=== PATIENT | female | born 1950 | race Caucasian/White ===

== ENCOUNTER 2021-03-06 08:49 | Inpatient (IN) ==
[2021-03-06] MEDS ORDERED: DEXTROSE 50% 25 GM/50 ML VIAL IV PRN (09:00)
[2021-03-06] MEDS ORDERED: GLUCAGON 1 MG VIAL IM PRN (09:00)
[2021-03-06] MEDS ORDERED: CHLORHEXIDINE 0.12% ORAL RINSE 60 ML BOTTLE SWISH/SPIT SCH (09:00)
[2021-03-06] MEDS ORDERED: CHLORHEXIDINE 4% SOLN 118 ML BOTTLE TOP SCH (09:00)
[2021-03-06] MEDS ORDERED: INFLUENZA VIRUS VACCINE 0.5 ML SYRINGE IM ONE (10:39)
[2021-03-06] MEDS: INSULIN REGULAR 100 UNIT/ML SUBCUT SCH ×4 (10:55→21:02)
[2021-03-06] MEDS: CHLORHEXIDINE 0.12% ORAL RINSE 60 ML BOTTLE SWISH/SPIT SCH ×2 (11:18→21:04)
[2021-03-06 11:19] LABS: Basophils % 0.7 % (0.0-0.8); Eosinophils # 0.2 10*3/uL (0.0-0.87); Eosinophils % 4.2 % (0.00-10.9); Hematocrit 22.8 VOL% (35.7-47.0); Hemoglobin 7.3 GM/DL (12.0-16.0); Immature Granulocytes % 0.9 %; Immature Granulocytes Absolute 0.04 #; Lymphocytes # 0.7 10*3/uL (1.4-4.0); Lymphocytes % 15.8 % (21.3-54.2); Mean Corpuscular Volume 87.7 FL (87-102); Mean Platelet Volume 10.9 FL (9.6-12.0); Monocytes % 7.8 % (1.7-12.7); Neutrophils % 70.6 % (38.7-73.9); Platelet Count 172 T/CUMM (130-400); Red Cell Distribution Width 13.3 % (9.3-17.3); White Blood Count 4.5 T/CUMM (4-12)
[2021-03-06 11:39] LABS: Albumin 2.5 G/DL (3.4-5.0); Bilirubin,Total 0.8 MG/DL (0.20-1.00); Calcium 8.5 MG/DL (8.5-10.1); Osmolality,Calculated 280.2 MOS/KG (273-304); Potassium 3.4 MMOL/L (3.5-5.1); Total Protein 6.3 G/DL (6.4-8.2)
[2021-03-06] MEDS ORDERED: SODIUM CHLORIDE 0.9% 1,000 ML IV PRN ×2 (13:31→23:00)
[2021-03-06] MEDS: CHLORHEXIDINE 4% SOLN 118 ML BOTTLE TOP SCH ×2 (14:20→21:04)
[2021-03-06 15:19] LABS: ABG Base Excess 6.6 MMOL/L (-2.5-2.5); ABG HCO3 30.5 MMOL/L (20-26); ABG Oxygen Saturation 97.7 % (95-100); ABG PCO2 40.5 MM HG (35-48); ABG PH 7.486 (7.35-7.45); ABG PO2 91.3 MM HG (80-95); ABG TCO2 28.7 MMOL/L (23-27)
[2021-03-06] MEDS ORDERED: HEPARIN 10,000 UNIT/10 ML VIAL IV PRN (15:56)
[2021-03-06] MEDS: ALBUTEROL 0.4 MG/ML 30 ML/BOTTLE PO SCH ×2 (16:03→21:03)
[2021-03-06 16:41] LABS: Hepatitis B Core IgM Quant 0.06 Index; Hepatitis B Surface Ag Quant < 0.10 Index; Hepatitis B Surface Ag Result Non-Reactive (NonReactive); Hepatitis C Virus Ab Quant 0.04 Index; Hepatitis C Virus Ab Result Non-Reactive (NonReactive)
[2021-03-06] MEDS ORDERED: CLORAZEPATE 3.75 MG TABLET PO PRN (20:43)
[2021-03-06] MEDS: hydrALAZINE 25 MG TABLET PO SCH (21:01)
[2021-03-06] MEDS: glyBURIDE 5 MG TABLET PO SCH (21:01)
[2021-03-06] MEDS: carvediloL 6.25 MG TABLET PO SCH ×2 (21:17→23:11)
[2021-03-07] MEDS ORDERED: VANCOMYCIN 1,000 MG VIAL ONE (04:57)
[2021-03-07] MEDS ORDERED: PAPAVERINE 60 MG/2 ML VIAL ONE (04:57)
[2021-03-07] MEDS ORDERED: VANCOMYCIN 500 MG VIAL ONE (04:57)
[2021-03-07] MEDS ORDERED: CEFUROXIME INJ 1,500 MG in SODIUM CHLORIDE 0.9% 100 ML IV ONE (05:00)
[2021-03-07] MEDS ORDERED: PANTOPRAZOLE 40 MG TABLET PO ONE (06:00)
[2021-03-07] MEDS ORDERED: DIAZEPAM 5 MG TABLET PO ONE (06:00)
[2021-03-07] MEDS ORDERED: LIDOCAINE 2% 5 ML VIAL ONE ×2 (06:02→10:22)
[2021-03-07] MEDS ORDERED: ETOMIDATE 40 MG/20 ML VIAL IV ONE (06:02)
[2021-03-07] MEDS ORDERED: VECURONIUM 10 MG VIAL IV ONE (06:02)
[2021-03-07] MEDS ORDERED: CALCIUM CHLORIDE 1,000 MG/10 ML VIAL IV ONE (06:02)
[2021-03-07] MEDS ORDERED: MIDAZOLAM 10 MG/2 ML VIAL ONE (06:03)
[2021-03-07] MEDS ORDERED: SUFentanil 250 MCG/5 ML AMP ONE (06:03)
[2021-03-07] MEDS ORDERED: LACTATED RINGERS 1,000 ML IV ONE (06:05)
[2021-03-07] MEDS ORDERED: SODIUM CHLORIDE 0.9% 1,000 ML IV ONE ×2 (06:05→20:35)
[2021-03-07] MEDS ORDERED: AMINOCAPROIC ACID 5,000 MG/20 ML VIAL ONE ×2 (06:05→06:28)
[2021-03-07] MEDS ORDERED: SODIUM CHLORIDE 0.9% 250 ML IV ONE (06:05)
[2021-03-07] MEDS ORDERED: MINERAL OIL/PETROLATUM OPH OINT 3.5 GM TUBE ONE (06:19)
[2021-03-07 07:14] LABS: Hematocrit 25.7 VOL% (35.7-47.0); Hemoglobin 8.2 GM/DL (12.0-16.0)
[2021-03-07 07:19] LABS: ABG HCO3 27.1 MMOL/L (20-26); ABG PH 7.467 (7.35-7.45); ABG TCO2 24.8 MMOL/L (23-27); Glucose Heart Surgery 147 MG/DL (74-106); Hematocrit Heart Surgery 25.7 PERCENT (37-47); Hemoglobin Heart Surgery 8.3 G/DL (12.0-16.0); Ionized Calcium Arterial 1.09 MMOL/L (1.21-1.46); PH Patient Temp Arterial 7.467; Patient Temperature 37 CELCIUS; Potassium Heart/CVR 3.5 MMOL/L (3.5-5.1); Sodium Heart/CVR 137 MMOL/L (135-145)
[2021-03-07] MEDS ORDERED: NITROPRUSSIDE 50 MG/2 ML VIAL ONE (07:39)
[2021-03-07] MEDS ORDERED: SODIUM BICARBONATE 50 MEQ/50 ML VIAL IV ONE ×2 (07:39→10:24)
[2021-03-07] MEDS ORDERED: POTASSIUM CHLORIDE RIDER 20 MEQ/100 ML PREMIX IV ONE (07:39)
[2021-03-07] MEDS ORDERED: CALCIUM CHLORIDE 1,000 MG/10 ML SYRINGE IV ONE (07:40)
[2021-03-07] MEDS ORDERED: PHENYLEPHRINE DRIP 40 MG/250 ML PREMIX IV ONE (07:40)
[2021-03-07] MEDS ORDERED: ALBUMIN 5% 12.5 GM/250 ML VIAL IV ONE ×2 (07:41→07:46)
[2021-03-07] MEDS ORDERED: LIDOCAINE 100 MG/5 ML SYRINGE ONE (07:41)
[2021-03-07] MEDS ORDERED: ATROPINE 1 MG/10 ML SYRINGE ONE (07:41)
[2021-03-07] MEDS ORDERED: EPINEPHrine 1 MG/10 ML SYRINGE ONE (07:42)
[2021-03-07 07:52] LABS: Bacteria,Urine Occasional /HPF (Few); Bilirubin,Urine Negative (Negative); Blood, Urine Negative (Negative); Glucose,Urine (UA) 50 mg/dL (Negative); Hyaline Casts,Urine 3 /LPF (0-3); Ketones,Urine Negative (Negative); Nitrite,Urine Negative (Negative); Protein,Urine >=500 MG/DL; RBC,Urine 1 /HPF (0-4); Squamous Epithelial Cell,Urine Occasional /HPF (0-10); Urine Appearance CLEAR (Clear); Urine Color Yellow (Yellow); Urine Specific Gravity 1.014 (1.001-1.035); Urine Urobilinogen < 2.0 EU/DL (0.2-1.0)
[2021-03-07] MEDS ORDERED: HEPARIN/NACL 0.9% 2 UNITS/ML 1,000 UNIT/500 ML BAG IV ONE (08:54)
[2021-03-07] MEDS ORDERED: SEVOFLURANE 1 UNIT/15 MINUTE INH ONE (08:54)
[2021-03-07 09:01] LABS: Glucose Heart Surgery 259 MG/DL (74-106); PCO2 Patient Temp Venous 28.2 MM HG; PH Patient Temp Venous 7.567; PO2 Patient Temp Venous 32.4 MM HG; Patient Temperature 34 CELCIUS; Potassium Heart/CVR 3.8 MMOL/L (3.5-5.1); Sodium Heart/CVR 126 MMOL/L (135-145); VBG Base Excess 2.5 MEQ/L (0-4); VBG HCO3 25.8 MEQ/L (24-28); VBG Oxygen Saturation 81.2 %; VBG PCO2 32.2 MMHG (41-51); VBG PH 7.521; VBG PO2 40.1 MMHG (17-40); VBG Total CO2 26.8 MMOL/L
[2021-03-07 09:02] LABS: Hemoglobin Heart Surgery < 5.0 G/DL (12.0-16.0)
[2021-03-07] MEDS ORDERED: PHENYLEPHRINE DRIP 20 MG/250 ML PREMIX IV ONE (09:13)
[2021-03-07 09:32] LABS: Hematocrit Heart Surgery 23.5 PERCENT (37-47); Hemoglobin Heart Surgery 7.5 G/DL (12.0-16.0); PCO2 Patient Temp Venous 29.7 MM HG; PH Patient Temp Venous 7.51; PO2 Patient Temp Venous 32.7 MM HG; Potassium Heart/CVR 4.8 MMOL/L (3.5-5.1); VBG Base Excess 1.1 MEQ/L (0-4); VBG HCO3 25.2 MEQ/L (24-28); VBG Oxygen Saturation 78.1 %; VBG PCO2 32.7 MMHG (41-51); VBG PH 7.48; VBG PO2 37.7 MMHG (17-40); VBG Total CO2 22.9 MMOL/L
[2021-03-07 10:21] LABS: ABG HCO3 23.6 MMOL/L (20-26); ABG PCO2 31.2 MM HG (35-48); ABG PH 7.461 (7.35-7.45); ABG TCO2 20.6 MMOL/L (23-27); Glucose Heart Surgery 258 MG/DL (74-106); Hematocrit Heart Surgery 25.9 PERCENT (37-47); Hemoglobin Heart Surgery 8.3 G/DL (12.0-16.0); Ionized Calcium Arterial 1.25 MMOL/L (1.21-1.46); PCO2 Patient Temp Arterial 31.2 MMHG; PH Patient Temp Arterial 7.461; Patient Temperature 37 CELCIUS; Sodium Heart/CVR 132 MMOL/L (135-145)
[2021-03-07] MEDS ORDERED: ALBUMIN 25% 25 GM/100 ML VIAL IV ONE (10:22)
[2021-03-07] MEDS ORDERED: HEPARIN 10,000 UNIT/10 ML VIAL ONE (10:23)
[2021-03-07] MEDS ORDERED: MANNITOL 12.5 GM/50 ML VIAL IV ONE (10:23)
[2021-03-07] MEDS ORDERED: methylPREDNISolone SOD SUC 1,000 MG/8 ML VIAL ONE (10:23)
[2021-03-07] MEDS ORDERED: PROTAMINE SULFATE 250 MG/25 ML VIAL IV ONE (10:23)
[2021-03-07] MEDS ORDERED: MAGNESIUM SULFATE 5 GM/10 ML VIAL IV ONE (10:23)
[2021-03-07] MEDS ORDERED: DEXTROSE 5% KCL 20 MEQ 40 MEQ/2,000 ML BAG IV ONE (10:23)
[2021-03-07] MEDS ORDERED: FUROSEMIDE 20 MG/2 ML VIAL ONE (10:24)
[2021-03-07] MEDS ORDERED: INSULIN REGULAR DRIP 100 ML IV SCH (10:43)
[2021-03-07] MEDS ORDERED: ALBUMIN 5% 12.5 GM/250 ML VIAL IV PRN (10:43)
[2021-03-07] MEDS ORDERED: INSULIN REGULAR 100 UNIT/ML IV ONE (10:43)
[2021-03-07] MEDS ORDERED: ONDANSETRON 4 MG/2 ML VIAL IV PRN (10:43)
[2021-03-07] MEDS ORDERED: POTASSIUM CHLORIDE RIDER 20 MEQ/100 ML PREMIX IV PRN (10:43)
[2021-03-07] MEDS ORDERED: INSULIN REGULAR 100 UNIT/ML IV PRN (10:43)
[2021-03-07] MEDS ORDERED: PHENYLEPHRINE DRIP 40 MG/250 ML PREMIX IV PRN (10:43)
[2021-03-07] MEDS ORDERED: ACETAMINOPHEN 650 MG SUPP RECTAL PRN (10:43)
[2021-03-07] MEDS ORDERED: MIDAZOLAM 2 MG/2 ML VIAL IV PRN (10:43)
[2021-03-07] MEDS ORDERED: POTASSIUM CHLORIDE RIDER 10 MEQ/100 ML PREMIX IV PRN (10:43)
[2021-03-07] MEDS ORDERED: MAGNESIUM SULF RIDER 2 GM/50 ML PREMIX IV PRN (10:43)
[2021-03-07] MEDS ORDERED: SODIUM CHLORIDE 0.45% 1,000 ML IV SCH ×2 (10:43)
[2021-03-07] MEDS ORDERED: LACTATED RINGERS 250 ML IV PRN (10:43)
[2021-03-07] MEDS ORDERED: CHLORHEXIDINE 4% SOLN 118 ML BOTTLE TOP PRN (10:43)
[2021-03-07] MEDS ORDERED: CALCIUM CHLORIDE 1,000 MG/10 ML SYRINGE IV PRN (10:43)
[2021-03-07] MEDS ORDERED: DEXTROSE 50% 25 GM/50 ML VIAL IV PRN ×2 (10:43)
[2021-03-07] MEDS ORDERED: NITROPRUSSIDE 100 MG in DEXTROSE 5% 250 ML IV PRN (10:43)
[2021-03-07] MEDS ORDERED: MIDAZOLAM 10 MG/2 ML VIAL IV PRN (10:43)
[2021-03-07] MEDS ORDERED: MAGNESIUM SULF RIDER 4 GM/100 ML PREMIX IV PRN (10:43)
[2021-03-07] MEDS ORDERED: MORPHINE 10 MG/1 ML VIAL IV PRN (10:43)
[2021-03-07] MEDS ORDERED: VECURONIUM 10 MG VIAL IV PRN ×2 (10:43)
[2021-03-07] MEDS ORDERED: DOBUTamine 500 MG/250 ML PREMIX IV ONE (10:56)
[2021-03-07] MEDS ORDERED: THROMBIN TOPICAL (RECOMBINANT) 5,000 UNIT VIAL TOP ONE (10:57)
[2021-03-07] MEDS ORDERED: DOBUTamine 500 MG/250 ML PREMIX IV PRN (11:00)
[2021-03-07 11:17] LABS: ABG Base Excess -1.3 MMOL/L (-2.5-2.5); ABG HCO3 23.3 MMOL/L (20-26); ABG Oxygen Saturation 98.5 % (95-100); ABG PCO2 34.2 MM HG (35-48); ABG PH 7.428 (7.35-7.45); ABG TCO2 20.9 MMOL/L (23-27); Glucose Heart Surgery 246 MG/DL (74-106); Hematocrit Heart Surgery 26.8 PERCENT (37-47); Hemoglobin Heart Surgery 8.6 G/DL (12.0-16.0); Potassium Heart/CVR 4.1 MMOL/L (3.5-5.1)
[2021-03-07 11:21] LABS: Basophils % 0.1 % (0.0-0.8); Eosinophils # 0.1 10*3/uL (0.0-0.87); Eosinophils % 1.3 % (0.00-10.9); Hematocrit 27.1 VOL% (35.7-47.0); Hemoglobin 8.4 GM/DL (12.0-16.0); Immature Granulocytes % 1.5 %; Immature Granulocytes Absolute 0.12 #; Lymphocytes # 0.4 10*3/uL (1.4-4.0); Lymphocytes % 4.8 % (21.3-54.2); Mean Corpuscular Volume 88.9 FL (87-102); Mean Platelet Volume 10.9 FL (9.6-12.0); Monocytes % 3.3 % (1.7-12.7); Platelet Count 126 T/CUMM (130-400); Red Blood Count 3.05 MC/CUMM (3.8-5.5); Red Cell Distribution Width 13.8 % (9.3-17.3); White Blood Count 8.2 T/CUMM (4-12)
[2021-03-07 11:44] LABS: CKMB % 14.6 %
[2021-03-07] MEDS ORDERED: NITROGLYCERIN DRIP 50 MG/250 ML BOTTLE IV PRN (11:47)
[2021-03-07 11:48] LABS: Albumin 2.5 G/DL (3.4-5.0); Bilirubin,Total 0.5 MG/DL (0.20-1.00); Calcium 7.6 MG/DL (8.5-10.1); Osmolality,Calculated 278.2 MOS/KG (273-304); Potassium 4.2 MMOL/L (3.5-5.1); Total Protein 4.9 G/DL (6.4-8.2)
[2021-03-07 11:50] LABS: High Sensitive Troponin I* 4717.9 ng/L (0-54)
[2021-03-07 12:09] LABS: Eosinophils 1 % (0-10); Hypochromasia 1+; Lymphocytes 5 % (20-55); Metamyelocytes 1 %; Ovalocytes 1+; Platelet Estimate Adequate; Polychromasia Slight; Segmented Neutrophils 91 % (50-85); Total Cells Counted 100
[2021-03-07 17:14] LABS: ABG Base Excess -3.1 MMOL/L (-2.5-2.5); ABG HCO3 21.5 MMOL/L (20-26); ABG Oxygen Saturation 97.7 % (95-100); ABG PH 7.382 (7.35-7.45); ABG PO2 105.7 MM HG (80-95); ABG TCO2 22.6 MMOL/L (23-27); Glucose Heart Surgery 82 MG/DL (74-106); Hemoglobin Heart Surgery 11.7 G/DL (12.0-16.0); Potassium Heart/CVR 3.8 MMOL/L (3.5-5.1)
[2021-03-07] MEDS: CHLORHEXIDINE 4% SOLN 118 ML BOTTLE TOP SCH (17:39)
[2021-03-07] MEDS: INSULIN REGULAR 100 UNIT/ML SUBCUT SCH ×2 (17:39→21:38)
[2021-03-07] MEDS: ALBUTEROL 0.4 MG/ML 30 ML/BOTTLE PO SCH (17:40)
[2021-03-07] MEDS: carvediloL 6.25 MG TABLET PO SCH (17:40)
[2021-03-07] MEDS: glyBURIDE 5 MG TABLET PO SCH (17:40)
[2021-03-07] MEDS: hydrALAZINE 25 MG TABLET PO SCH (17:40)
[2021-03-07] MEDS: CHLORHEXIDINE 0.12% ORAL RINSE 60 ML BOTTLE SWISH/SPIT SCH ×2 (17:40→20:48)
[2021-03-07 17:45] LABS: INR 1.1; PT Patient Result 12.3 SECS (10.5-12.0)
[2021-03-07] MEDS: CEFUROXIME INJ 1,500 MG in SODIUM CHLORIDE 0.9% 100 ML IV SCH (18:30)
[2021-03-07 19:36] LABS: ABG Base Excess -3.6 MMOL/L (-2.5-2.5); ABG HCO3 20.9 MMOL/L (20-26); ABG Oxygen Saturation 97.8 % (95-100); ABG PH 7.382 (7.35-7.45); Glucose Heart Surgery 118 MG/DL (74-106); Hemoglobin Heart Surgery 11.6 G/DL (12.0-16.0); Potassium Heart/CVR 4.2 MMOL/L (3.5-5.1)
[2021-03-07] MEDS ORDERED: INSULIN REGULAR 100 UNIT/ML SUBCUT SCH (20:00)
[2021-03-07 21:08] LABS: ABG Base Excess -4.2 MMOL/L (-2.5-2.5); ABG Oxygen Saturation 98.6 % (95-100); ABG PCO2 37.9 MM HG (35-48); ABG PH 7.351 (7.35-7.45); ABG TCO2 18.9 MMOL/L (23-27); Glucose Heart Surgery 224 MG/DL (74-106); Hematocrit Heart Surgery 33.9 PERCENT (37-47); Potassium Heart/CVR 4.6 MMOL/L (3.5-5.1)
[2021-03-07 23:13] LABS: ABG Base Excess -5.5 MMOL/L (-2.5-2.5); ABG HCO3 19.9 MMOL/L (20-26); ABG Oxygen Saturation 97.8 % (95-100); ABG PCO2 40.4 MM HG (35-48); ABG PH 7.312 (7.35-7.45); ABG TCO2 18.5 MMOL/L (23-27); Glucose Heart Surgery 245 MG/DL (74-106); Hematocrit Heart Surgery 35.2 PERCENT (37-47); Hemoglobin Heart Surgery 11.4 G/DL (12.0-16.0); Potassium Heart/CVR 4.5 MMOL/L (3.5-5.1)
[2021-03-08 00:04] LABS: ABG Base Excess -5.8 MMOL/L (-2.5-2.5); ABG HCO3 19.7 MMOL/L (20-26); ABG Oxygen Saturation 97.7 % (95-100); ABG PCO2 38.5 MM HG (35-48); ABG PH 7.326 (7.35-7.45); ABG PO2 106.1 MM HG (80-95); ABG TCO2 20.8 MMOL/L (23-27); Glucose Heart Surgery 218 MG/DL (74-106); Hemoglobin Heart Surgery 11.6 G/DL (12.0-16.0); Potassium Heart/CVR 4.4 MMOL/L (3.5-5.1)
[2021-03-08] MEDS ORDERED: MORPHINE 2 MG/1 ML SYRINGE IV PRN (01:16)
[2021-03-08] MEDS ORDERED: MORPHINE 2 MG/1 ML SYRINGE ONE (01:18)
[2021-03-08] MEDS: INSULIN REGULAR 100 UNIT/ML SUBCUT SCH ×6 (01:22→22:01)
[2021-03-08 04:04] LABS: ABG Base Excess -5.9 MMOL/L (-2.5-2.5); ABG HCO3 19.6 MMOL/L (20-26); ABG Oxygen Saturation 98.7 % (95-100); ABG PCO2 38.5 MM HG (35-48); ABG PH 7.318 (7.35-7.45); ABG TCO2 17.9 MMOL/L (23-27); Glucose Heart Surgery 176 MG/DL (74-106); Hematocrit Heart Surgery 34.3 PERCENT (37-47); Hemoglobin Heart Surgery 11.1 G/DL (12.0-16.0); Potassium Heart/CVR 4.1 MMOL/L (3.5-5.1)
[2021-03-08 04:05] LABS: Basophils % 0.1 % (0.0-0.8); Hematocrit 34.9 VOL% (35.7-47.0); Hemoglobin 10.8 GM/DL (12.0-16.0); Immature Granulocytes % 0.4 %; Immature Granulocytes Absolute 0.04 #; Lymphocytes # 0.6 10*3/uL (1.4-4.0); Lymphocytes % 6.1 % (21.3-54.2); Mean Corpuscular HGB Conc 30.9 GM/DL (32-36); Mean Corpuscular Volume 88.8 FL (87-102); Mean Platelet Volume 11.4 FL (9.6-12.0); Monocytes % 3.1 % (1.7-12.7); Neutrophils % 90.3 % (38.7-73.9); Platelet Count 121 T/CUMM (130-400); Red Blood Count 3.93 MC/CUMM (3.8-5.5); Red Cell Distribution Width 14.7 % (9.3-17.3)
[2021-03-08] MEDS ORDERED: SODIUM BICARBONATE 50 MEQ/50 ML VIAL IV ONE ×2 (04:16→06:13)
[2021-03-08 04:33] LABS: Albumin 2.6 G/DL (3.4-5.0); Bilirubin,Direct 0.13 MG/DL (0.0-0.20); Bilirubin,Total 0.6 MG/DL (0.20-1.00); Calcium 8.4 MG/DL (8.5-10.1); Osmolality,Calculated 283.8 MOS/KG (273-304); Potassium 4.2 MMOL/L (3.5-5.1); Total Protein 5.4 G/DL (6.4-8.2)
[2021-03-08 05:11] LABS: ABG Base Excess -5.6 MMOL/L (-2.5-2.5); ABG HCO3 19.8 MMOL/L (20-26); ABG Oxygen Saturation 98.8 % (95-100); ABG PCO2 40.1 MM HG (35-48); ABG PH 7.312 (7.35-7.45); ABG TCO2 18.3 MMOL/L (23-27); Glucose Heart Surgery 155 MG/DL (74-106); Hematocrit Heart Surgery 34.8 PERCENT (37-47); Hemoglobin Heart Surgery 11.3 G/DL (12.0-16.0); Potassium Heart/CVR 4.1 MMOL/L (3.5-5.1)
[2021-03-08 05:19] LABS: CKMB % 16.6 %
[2021-03-08 05:21] LABS: High Sensitive Troponin I* 60534.7 ng/L (0-54)
[2021-03-08] MEDS: CEFUROXIME INJ 1,500 MG in SODIUM CHLORIDE 0.9% 100 ML IV SCH ×2 (05:40→19:18)
[2021-03-08 05:49] LABS: ABG Base Excess -5.3 MMOL/L (-2.5-2.5); ABG PH 7.339 (7.35-7.45); ABG TCO2 17.9 MMOL/L (23-27); Glucose Heart Surgery 143 MG/DL (74-106); Hematocrit Heart Surgery 34.8 PERCENT (37-47); Hemoglobin Heart Surgery 11.3 G/DL (12.0-16.0); Potassium Heart/CVR 4.2 MMOL/L (3.5-5.1)
[2021-03-08 07:25] LABS: ABG Base Excess -2.8 MMOL/L (-2.5-2.5); ABG HCO3 22.1 MMOL/L (20-26); ABG Oxygen Saturation 98.8 % (95-100); ABG PCO2 40.6 MM HG (35-48); ABG PH 7.352 (7.35-7.45); ABG TCO2 20.3 MMOL/L (23-27); Glucose Heart Surgery 116 MG/DL (74-106); Hematocrit Heart Surgery 34.4 PERCENT (37-47); Hemoglobin Heart Surgery 11.2 G/DL (12.0-16.0); Potassium Heart/CVR 4.1 MMOL/L (3.5-5.1)
[2021-03-08] MEDS ORDERED: GLUCAGON 1 MG VIAL IM PRN (08:57)
[2021-03-08] MEDS ORDERED: HEPARIN 10,000 UNIT/10 ML VIAL IV SCH (09:45)
[2021-03-08] MEDS ORDERED: ALTEPLASE 2 MG VIAL IV ONE (10:00)
[2021-03-08] MEDS: ROSUVASTATIN 20 MG TABLET PO SCH (11:12)
[2021-03-08] MEDS: carvediloL 6.25 MG TABLET PO SCH ×2 (11:12→22:01)
[2021-03-08 11:18] LABS: ABG HCO3 20.3 MMOL/L (20-26); ABG Oxygen Saturation 98.6 % (95-100); ABG PCO2 39.4 MM HG (35-48); ABG PH 7.326 (7.35-7.45); ABG TCO2 18.5 MMOL/L (23-27); Glucose Heart Surgery 179 MG/DL (74-106); Hematocrit Heart Surgery 35.3 PERCENT (37-47); Hemoglobin Heart Surgery 11.4 G/DL (12.0-16.0); Potassium Heart/CVR 4.2 MMOL/L (3.5-5.1)
[2021-03-08 11:56] LABS: CKMB % 17.3 %
[2021-03-08] MEDS: CHLORHEXIDINE 0.12% ORAL RINSE 60 ML BOTTLE SWISH/SPIT SCH ×2 (11:57→22:02)
[2021-03-08 12:01] LABS: High Sensitive Troponin I* 64529.4 ng/L (0-54)
[2021-03-08] MEDS ORDERED: oxyCODONE/ACETAMINOPHEN 5-325 MG TABLET PO PRN (12:04)
[2021-03-08] MEDS: ASPIRIN EC 81 MG TABLET PO SCH (13:46)
[2021-03-08] MEDS: ASCORBIC ACID 500 MG TABLET PO SCH ×2 (13:46→22:01)
[2021-03-09] MEDS: INSULIN REGULAR 100 UNIT/ML SUBCUT SCH ×6 (00:15→20:16)
[2021-03-09 03:59] LABS: Basophils % 0.1 % (0.0-0.8); Hemoglobin 10.5 GM/DL (12.0-16.0); Immature Granulocytes % 0.6 %; Immature Granulocytes Absolute 0.08 #; Lymphocytes # 0.8 10*3/uL (1.4-4.0); Lymphocytes % 6.6 % (21.3-54.2); Mean Corpuscular HGB Conc 30.9 GM/DL (32-36); Mean Platelet Volume 11.1 FL (9.6-12.0); Monocytes % 5.2 % (1.7-12.7); Neutrophils % 87.5 % (38.7-73.9); Platelet Count 116 T/CUMM (130-400); Red Blood Count 3.82 MC/CUMM (3.8-5.5); Red Cell Distribution Width 15.3 % (9.3-17.3); White Blood Count 12.7 T/CUMM (4-12)
[2021-03-09 04:36] LABS: Alanine Aminotransferase 31 U/L (13-56); Albumin 2.4 G/DL (3.4-5.0); Alkaline Phosphatase 55 U/L (45-117); Aspartate Amino Transferase 91 U/L (0-37); Bilirubin,Direct < 0.100 MG/DL (0.0-0.20); Bilirubin,Total < 0.39 MG/DL (0.20-1.00); Blood Urea Nitrogen 45 MG/DL (7-18); Calcium 8.3 MG/DL (8.5-10.1); Carbon Dioxide 23 MMOL/L (21-32); Estimated Glom Filtration Rate 9 ML/MIN; Glucose 85 MG/DL (74-106); Osmolality,Calculated 280.1 MOS/KG (273-304); Potassium 4.2 MMOL/L (3.5-5.1); Sodium 135 MMOL/L (136-145); Total Protein 5.7 G/DL (6.4-8.2)
[2021-03-09] MEDS: CHLORHEXIDINE 0.12% ORAL RINSE 60 ML BOTTLE SWISH/SPIT SCH ×2 (08:00→20:17)
[2021-03-09] MEDS ORDERED: HEPARIN 5,000 UNIT/1 ML VIAL ONE (08:11)
[2021-03-09] MEDS ORDERED: LIDOCAINE 1%/EPI INJ 20 ML VIAL ONE (08:11)
[2021-03-09] MEDS ORDERED: BUPIVACAINE MPF 0.25% 30 ML VIAL ONE (08:11)
[2021-03-09] MEDS ORDERED: ETOMIDATE 40 MG/20 ML VIAL IV ONE (08:30)
[2021-03-09] MEDS ORDERED: LIDOCAINE 2% 5 ML VIAL ONE (08:30)
[2021-03-09] MEDS ORDERED: propofoL 200 MG/20 ML VIAL IV ONE (08:30)
[2021-03-09] MEDS ORDERED: MIDAZOLAM 2 MG/2 ML VIAL ONE (08:30)
[2021-03-09] MEDS ORDERED: fentaNYL 100 MCG/2 ML VIAL ONE (08:30)
[2021-03-09 09:17] LABS: CKMB % 22.7 %
[2021-03-09] MEDS ORDERED: ePHEDrine 50 MG/ML VIAL ONE (09:34)
[2021-03-09] MEDS ORDERED: NITROGLYCERIN DRIP 0 MG/0 ML BOTTLE IV ONE (09:41)
[2021-03-09 09:49] LABS: ABG HCO3 19.6 MMOL/L (20-26); ABG Oxygen Saturation 99.6 % (95-100); ABG PCO2 39.7 MM HG (35-48); ABG PH 7.309 (7.35-7.45); Glucose Heart Surgery 171 MG/DL (74-106); Hematocrit Heart Surgery 34.8 PERCENT (37-47); Hemoglobin Heart Surgery 11.3 G/DL (12.0-16.0); Ionized Calcium Arterial 1.48 MMOL/L (1.21-1.46); PCO2 Patient Temp Arterial 39.7 MMHG; PH Patient Temp Arterial 7.309; Patient Temperature 37 CELCIUS; Potassium Heart/CVR 3.6 MMOL/L (3.5-5.1); Sodium Heart/CVR 136 MMOL/L (135-145)
[2021-03-09 10:41] LABS: Basophils % 0.1 % (0.0-0.8); Eosinophils % 0.2 % (0.00-10.9); Hematocrit 34.7 VOL% (35.7-47.0); Hemoglobin 10.6 GM/DL (12.0-16.0); Immature Granulocytes % 1.2 %; Immature Granulocytes Absolute 0.13 #; Lymphocytes # 0.9 10*3/uL (1.4-4.0); Lymphocytes % 8.3 % (21.3-54.2); Mean Corpuscular HGB Conc 30.5 GM/DL (32-36); Mean Corpuscular Volume 90.4 FL (87-102); Mean Platelet Volume 11.2 FL (9.6-12.0); Monocytes % 5.3 % (1.7-12.7); Neutrophils % 84.9 % (38.7-73.9); Platelet Count 130 T/CUMM (130-400); Red Blood Count 3.84 MC/CUMM (3.8-5.5); Red Cell Distribution Width 15.4 % (9.3-17.3); White Blood Count 11.2 T/CUMM (4-12)
[2021-03-09] MEDS ORDERED: MAGNESIUM HYDROXIDE SUSP 30 ML UDCUP PO PRN (10:42)
[2021-03-09] MEDS ORDERED: ACETAMINOPHEN 325 MG TABLET PO PRN (10:42)
[2021-03-09] MEDS ORDERED: ONDANSETRON 4 MG/2 ML VIAL IV PRN (10:42)
[2021-03-09] MEDS ORDERED: ZALEPLON 5 MG CAPSULE PO PRN (10:42)
[2021-03-09] MEDS ORDERED: DEXTROSE 50% 25 GM/50 ML VIAL IV PRN ×2 (10:42)
[2021-03-09] MEDS ORDERED: ALUMINUM/MAGNES/SIMETH MAX STR 30 ML UDCUP PO PRN (10:42)
[2021-03-09] MEDS ORDERED: MAGNESIUM SULF RIDER 2 GM/50 ML PREMIX IV PRN (10:42)
[2021-03-09] MEDS ORDERED: POTASSIUM CHLORIDE 20 MEQ TABLET PO PRN (10:42)
[2021-03-09] MEDS ORDERED: GLUCAGON 1 MG VIAL IM PRN ×2 (10:42)
[2021-03-09] MEDS ORDERED: MAGNESIUM SULF RIDER 4 GM/100 ML PREMIX IV PRN (10:42)
[2021-03-09 10:50] LABS: Calcium 9.3 MG/DL (8.5-10.1); Potassium 4.1 MMOL/L (3.5-5.1)
[2021-03-09] MEDS: ASPIRIN EC 81 MG TABLET PO SCH (10:50)
[2021-03-09] MEDS: carvediloL 6.25 MG TABLET PO SCH ×2 (11:04→20:17)
[2021-03-09 11:15] LABS: ABG HCO3 20.3 MMOL/L (20-26); ABG Oxygen Saturation 96.4 % (95-100); ABG PCO2 45.2 MM HG (35-48); ABG PH 7.288 (7.35-7.45); ABG PO2 91.1 MM HG (80-95); ABG TCO2 19.7 MMOL/L (23-27)
[2021-03-09] MEDS: ASCORBIC ACID 500 MG TABLET PO SCH ×2 (13:45→20:17)
[2021-03-09] MEDS: ROSUVASTATIN 20 MG TABLET PO SCH (13:45)
[2021-03-09] MEDS: PHENOL 1.4% THROAT SPRAY 177 ML BOTTLE PO PRN ×2 (16:40→20:18)
[2021-03-10] MEDS: INSULIN REGULAR 100 UNIT/ML SUBCUT SCH ×6 (00:11→20:03)
[2021-03-10 03:34] LABS: Basophils % 0.2 % (0.0-0.8); Eosinophils # 0.1 10*3/uL (0.0-0.87); Eosinophils % 1.5 % (0.00-10.9); Hematocrit 32.4 VOL% (35.7-47.0); Hemoglobin 10.3 GM/DL (12.0-16.0); Immature Granulocytes % 0.7 %; Immature Granulocytes Absolute 0.06 #; Lymphocytes # 0.8 10*3/uL (1.4-4.0); Lymphocytes % 9.5 % (21.3-54.2); Mean Corpuscular HGB Conc 31.8 GM/DL (32-36); Mean Corpuscular Volume 89.3 FL (87-102); Mean Platelet Volume 11.5 FL (9.6-12.0); Monocytes % 8.8 % (1.7-12.7); Neutrophils % 79.3 % (38.7-73.9); Platelet Count 102 T/CUMM (130-400); Red Blood Count 3.63 MC/CUMM (3.8-5.5); Red Cell Distribution Width 15.1 % (9.3-17.3); White Blood Count 8.4 T/CUMM (4-12)
[2021-03-10 03:55] LABS: Alanine Aminotransferase 37 U/L (13-56); Albumin 2.1 G/DL (3.4-5.0); Alkaline Phosphatase 64 U/L (45-117); Aspartate Amino Transferase 57 U/L (0-37); Bilirubin,Direct < 0.100 MG/DL (0.0-0.20); Bilirubin,Indirect 0.3 MG/DL (0.0-1.0); Bilirubin,Total < 0.39 MG/DL (0.20-1.00); Blood Urea Nitrogen 39 MG/DL (7-18); CKMB % 18.9 %; Calcium 7.5 MG/DL (8.5-10.1); Carbon Dioxide 24 MMOL/L (21-32); Estimated Glom Filtration Rate 12 ML/MIN; Glucose 171 MG/DL (74-106); Potassium 3.9 MMOL/L (3.5-5.1); Sodium 136 MMOL/L (136-145); Total Protein 5.4 G/DL (6.4-8.2)
[2021-03-10] MEDS: ASCORBIC ACID 500 MG TABLET PO SCH ×2 (08:46→20:04)
[2021-03-10] MEDS: carvediloL 6.25 MG TABLET PO SCH ×2 (08:46→20:04)
[2021-03-10] MEDS: ROSUVASTATIN 20 MG TABLET PO SCH (08:46)
[2021-03-10] MEDS: CHLORHEXIDINE 0.12% ORAL RINSE 60 ML BOTTLE SWISH/SPIT SCH ×2 (08:46→20:04)
[2021-03-10] MEDS ORDERED: PANTOPRAZOLE 40 MG TABLET PO SCH (09:00)
[2021-03-10] MEDS ORDERED: DOCUSATE SODIUM 100 MG CAPSULE PO SCH (09:00)
[2021-03-10] MEDS ORDERED: FERROUS SULFATE 325 MG TABLET PO SCH (09:00)
[2021-03-10] MEDS ORDERED: POTASSIUM CHLORIDE 20 MEQ TABLET PO PRN (09:21)
[2021-03-10] MEDS ORDERED: ACETAMINOPHEN 325 MG TABLET PO PRN (09:21)
[2021-03-10] MEDS ORDERED: ONDANSETRON 4 MG/2 ML VIAL IV PRN (09:21)
[2021-03-10] MEDS ORDERED: GLUCAGON 1 MG VIAL IM PRN ×2 (09:21)
[2021-03-10] MEDS ORDERED: ZALEPLON 5 MG CAPSULE PO PRN (09:21)
[2021-03-10] MEDS ORDERED: DEXTROSE 50% 25 GM/50 ML VIAL IV PRN ×2 (09:21)
[2021-03-10] MEDS ORDERED: MAGNESIUM HYDROXIDE SUSP 30 ML UDCUP PO PRN (09:21)
[2021-03-10] MEDS ORDERED: MAGNESIUM SULF RIDER 2 GM/50 ML PREMIX IV PRN (09:21)
[2021-03-10] MEDS ORDERED: ALUMINUM/MAGNES/SIMETH MAX STR 30 ML UDCUP PO PRN (09:21)
[2021-03-10] MEDS ORDERED: MAGNESIUM SULF RIDER 4 GM/100 ML PREMIX IV PRN (09:21)
[2021-03-10] MEDS ORDERED: SODIUM CHLOR 0.45% KCL 20 MEQ 20 MEQ/1,000 ML BAG IV SCH (09:30)
[2021-03-10] MEDS ORDERED: ALBUMIN 5% 25 GM/500 ML VIAL IV ONE (11:35)
[2021-03-10] MEDS: guaiFENesin 200 MG/10 ML UDCUP PO PRN (13:26)
[2021-03-10] MEDS: ALBUTEROL/IPRATROPIUM 3 ML NEB RESP TX PRN ×2 (13:30→19:58)
[2021-03-10] MEDS: oxyCODONE/ACETAMINOPHEN 5-325 MG TABLET PO PRN (17:30)
[2021-03-11] MEDS: INSULIN REGULAR 100 UNIT/ML SUBCUT SCH ×6 (01:15→21:00)
[2021-03-11 05:31] LABS: Basophils % 0.3 % (0.0-0.8); Eosinophils # 0.3 10*3/uL (0.0-0.87); Eosinophils % 3.7 % (0.00-10.9); Hematocrit 31.3 VOL% (35.7-47.0); Hemoglobin 9.7 GM/DL (12.0-16.0); Immature Granulocytes % 0.7 %; Immature Granulocytes Absolute 0.05 #; Lymphocytes % 13.1 % (21.3-54.2); Mean Corpuscular Volume 90.7 FL (87-102); Mean Platelet Volume 11.7 FL (9.6-12.0); Monocytes % 10.5 % (1.7-12.7); Neutrophils % 71.7 % (38.7-73.9); Platelet Count 94 T/CUMM (130-400); Red Blood Count 3.45 MC/CUMM (3.8-5.5); Red Cell Distribution Width 14.9 % (9.3-17.3); White Blood Count 7.2 T/CUMM (4-12)
[2021-03-11 05:53] LABS: Calcium 7.6 MG/DL (8.5-10.1); Osmolality,Calculated 280.4 MOS/KG (273-304); Potassium 3.8 MMOL/L (3.5-5.1)
[2021-03-11 05:59] LABS: Bilirubin,Direct 0.1 MG/DL (0.0-0.20); Bilirubin,Indirect 0.7 MG/DL (0.0-1.0); Bilirubin,Total 0.8 MG/DL (0.20-1.00); CKMB % 11.6 %; Calcium 7.6 MG/DL (8.5-10.1); Osmolality,Calculated 281.2 MOS/KG (273-304); Potassium 3.8 MMOL/L (3.5-5.1); Total Protein 5.4 G/DL (6.4-8.2)
[2021-03-11] MEDS ORDERED: FUROSEMIDE 40 MG/4 ML VIAL IV ONE (06:00)
[2021-03-11 06:01] LABS: High Sensitive Troponin I* 17099.3 ng/L (0-54)
[2021-03-11] MEDS: ASPIRIN EC 325 MG TABLET PO SCH (08:36)
[2021-03-11] MEDS: DOCUSATE SODIUM 100 MG CAPSULE PO SCH (08:36)
[2021-03-11] MEDS: ASCORBIC ACID 500 MG TABLET PO SCH ×2 (08:36→21:01)
[2021-03-11] MEDS: ROSUVASTATIN 20 MG TABLET PO SCH (08:36)
[2021-03-11] MEDS: FUROSEMIDE 40 MG TABLET PO SCH (08:36)
[2021-03-11] MEDS: guaiFENesin 200 MG/10 ML UDCUP PO PRN ×2 (08:37→11:56)
[2021-03-11] MEDS: MONTELUKAST 10 MG TABLET PO SCH (08:37)
[2021-03-11] MEDS: PANTOPRAZOLE 40 MG TABLET PO SCH (08:37)
[2021-03-11] MEDS: carvediloL 6.25 MG TABLET PO SCH ×2 (08:37→21:01)
[2021-03-11] MEDS: FERROUS SULFATE 325 MG TABLET PO SCH (08:37)
[2021-03-11] MEDS: CHLORHEXIDINE 0.12% ORAL RINSE 60 ML BOTTLE SWISH/SPIT SCH ×2 (08:38→21:01)
[2021-03-11] MEDS: ALBUTEROL 2 MG TABLET PO SCH ×3 (08:52→21:01)
[2021-03-11] MEDS: oxyCODONE/ACETAMINOPHEN 5-325 MG TABLET PO PRN ×2 (10:21→19:31)
[2021-03-11] MEDS: POLYETHYLENE GLYCOL POWDER 17 GM PACK PO SCH (14:03)
[2021-03-12] MEDS: INSULIN REGULAR 100 UNIT/ML SUBCUT SCH ×6 (00:32→21:06)
[2021-03-12 06:28] LABS: Basophils % 0.1 % (0.0-0.8); Eosinophils # 0.3 10*3/uL (0.0-0.87); Eosinophils % 3.3 % (0.00-10.9); Hematocrit 31.8 VOL% (35.7-47.0); Hemoglobin 9.9 GM/DL (12.0-16.0); Immature Granulocytes % 0.8 %; Immature Granulocytes Absolute 0.06 #; Lymphocytes # 0.9 10*3/uL (1.4-4.0); Lymphocytes % 11.7 % (21.3-54.2); Mean Corpuscular HGB Conc 31.1 GM/DL (32-36); Mean Corpuscular Volume 90.3 FL (87-102); Mean Platelet Volume 11.5 FL (9.6-12.0); Monocytes % 10.3 % (1.7-12.7); Neutrophils % 73.8 % (38.7-73.9); Platelet Count 122 T/CUMM (130-400); Red Blood Count 3.52 MC/CUMM (3.8-5.5); Red Cell Distribution Width 14.6 % (9.3-17.3); White Blood Count 7.6 T/CUMM (4-12)
[2021-03-12 06:56] LABS: Calcium 7.9 MG/DL (8.5-10.1); Osmolality,Calculated 290.2 MOS/KG (273-304); Potassium 4.2 MMOL/L (3.5-5.1)
[2021-03-12 07:03] LABS: Alanine Aminotransferase 17 U/L (13-56); Alkaline Phosphatase 63 U/L (45-117); Aspartate Amino Transferase 22 U/L (0-37); Bilirubin,Direct < 0.100 MG/DL (0.0-0.20); Bilirubin,Indirect 0.9 MG/DL (0.0-1.0); Blood Urea Nitrogen 69 MG/DL (7-18); Calcium 7.9 MG/DL (8.5-10.1); Carbon Dioxide 23 MMOL/L (21-32); Estimated Glom Filtration Rate 7 ML/MIN; Glucose 156 MG/DL (74-106); Osmolality,Calculated 290.2 MOS/KG (273-304); Potassium 4.2 MMOL/L (3.5-5.1); Sodium 134 MMOL/L (136-145); Total Protein 5.4 G/DL (6.4-8.2)
[2021-03-12] MEDS: MONTELUKAST 10 MG TABLET PO SCH (08:33)
[2021-03-12] MEDS: DOCUSATE SODIUM 100 MG CAPSULE PO SCH (08:33)
[2021-03-12] MEDS: ASCORBIC ACID 500 MG TABLET PO SCH ×2 (08:33→20:56)
[2021-03-12] MEDS: FUROSEMIDE 40 MG TABLET PO SCH (08:33)
[2021-03-12] MEDS: PANTOPRAZOLE 40 MG TABLET PO SCH (08:33)
[2021-03-12] MEDS: ROSUVASTATIN 20 MG TABLET PO SCH (08:33)
[2021-03-12] MEDS: carvediloL 6.25 MG TABLET PO SCH (08:33)
[2021-03-12] MEDS: ASPIRIN EC 325 MG TABLET PO SCH (08:33)
[2021-03-12] MEDS: POLYETHYLENE GLYCOL POWDER 17 GM PACK PO SCH (08:33)
[2021-03-12] MEDS: ALBUTEROL 2 MG TABLET PO SCH ×3 (08:33→21:06)
[2021-03-12] MEDS: guaiFENesin 200 MG/10 ML UDCUP PO PRN ×2 (08:36→20:55)
[2021-03-12] MEDS: FERROUS SULFATE 325 MG TABLET PO SCH (08:40)
[2021-03-12] MEDS: CHLORHEXIDINE 0.12% ORAL RINSE 60 ML BOTTLE SWISH/SPIT SCH ×2 (08:40→21:02)
[2021-03-12] MEDS ORDERED: carvediloL 6.25 MG TABLET PO ONE (09:13)
[2021-03-12] MEDS ORDERED: ALTEPLASE 2 MG VIAL IV SCH (10:30)
[2021-03-12] MEDS ORDERED: HEPARIN 10,000 UNIT/10 ML VIAL IV SCH (10:30)
[2021-03-12] MEDS: oxyCODONE/ACETAMINOPHEN 5-325 MG TABLET PO PRN (18:11)
[2021-03-12] MEDS: carvediloL 12.5 MG TABLET PO SCH (20:55)
[2021-03-13] MEDS: guaiFENesin 200 MG/10 ML UDCUP PO PRN ×2 (02:11→05:47)
[2021-03-13] MEDS: oxyCODONE/ACETAMINOPHEN 5-325 MG TABLET PO PRN ×2 (05:47→18:04)
[2021-03-13 06:18] LABS: Basophils % 0.3 % (0.0-0.8); Eosinophils # 0.2 10*3/uL (0.0-0.87); Eosinophils % 3.5 % (0.00-10.9); Hemoglobin 10.1 GM/DL (12.0-16.0); Immature Granulocytes % 1.1 %; Immature Granulocytes Absolute 0.07 #; Lymphocytes # 0.9 10*3/uL (1.4-4.0); Lymphocytes % 13.1 % (21.3-54.2); Mean Corpuscular HGB Conc 30.6 GM/DL (32-36); Mean Corpuscular Volume 89.9 FL (87-102); Mean Platelet Volume 11.5 FL (9.6-12.0); Monocytes % 11.7 % (1.7-12.7); Neutrophils % 70.3 % (38.7-73.9); Platelet Count 153 T/CUMM (130-400); Red Blood Count 3.67 MC/CUMM (3.8-5.5); Red Cell Distribution Width 14.4 % (9.3-17.3); White Blood Count 6.6 T/CUMM (4-12)
[2021-03-13 06:53] LABS: Calcium 8.5 MG/DL (8.5-10.1); Osmolality,Calculated 292.2 MOS/KG (273-304); Potassium 4.4 MMOL/L (3.5-5.1)
[2021-03-13] MEDS: INSULIN REGULAR 100 UNIT/ML SUBCUT SCH ×4 (08:58→21:18)
[2021-03-13] MEDS ORDERED: BUPIVACAINE MPF 0.25% 30 ML VIAL ONE (09:09)
[2021-03-13] MEDS ORDERED: HEPARIN 5,000 UNIT/1 ML VIAL ONE (09:10)
[2021-03-13] MEDS ORDERED: LIDOCAINE 1%/EPI INJ 20 ML VIAL ONE (09:10)
[2021-03-13] MEDS ORDERED: MIDAZOLAM 2 MG/2 ML VIAL ONE (09:24)
[2021-03-13] MEDS: ASCORBIC ACID 500 MG TABLET PO SCH ×2 (12:25→21:15)
[2021-03-13] MEDS: PANTOPRAZOLE 40 MG TABLET PO SCH (12:25)
[2021-03-13] MEDS: MONTELUKAST 10 MG TABLET PO SCH (12:25)
[2021-03-13] MEDS: carvediloL 12.5 MG TABLET PO SCH ×2 (12:26→21:16)
[2021-03-13] MEDS: ASPIRIN EC 325 MG TABLET PO SCH (12:26)
[2021-03-13] MEDS: DOCUSATE SODIUM 100 MG CAPSULE PO SCH (12:26)
[2021-03-13] MEDS: ALBUTEROL 2 MG TABLET PO SCH ×3 (12:26→21:23)
[2021-03-13] MEDS: ROSUVASTATIN 20 MG TABLET PO SCH (12:26)
[2021-03-13] MEDS: FERROUS SULFATE 325 MG TABLET PO SCH (12:26)
[2021-03-13] MEDS: FUROSEMIDE 40 MG TABLET PO SCH (12:26)
[2021-03-13] MEDS: CHLORHEXIDINE 0.12% ORAL RINSE 60 ML BOTTLE SWISH/SPIT SCH ×2 (12:27→21:24)
[2021-03-13] MEDS: POLYETHYLENE GLYCOL POWDER 17 GM PACK PO SCH (12:27)
[2021-03-14] MEDS: guaiFENesin 200 MG/10 ML UDCUP PO PRN ×4 (00:45→21:21)
[2021-03-14] MEDS: oxyCODONE/ACETAMINOPHEN 5-325 MG TABLET PO PRN ×3 (00:45→21:13)
[2021-03-14 04:22] LABS: Basophils % 0.3 % (0.0-0.8); Eosinophils # 0.2 10*3/uL (0.0-0.87); Eosinophils % 3.4 % (0.00-10.9); Hemoglobin 9.6 GM/DL (12.0-16.0); Immature Granulocytes % 1.2 %; Immature Granulocytes Absolute 0.08 #; Lymphocytes # 0.7 10*3/uL (1.4-4.0); Lymphocytes % 10.8 % (21.3-54.2); Mean Platelet Volume 11.3 FL (9.6-12.0); Neutrophils % 71.3 % (38.7-73.9); Platelet Count 147 T/CUMM (130-400); Red Blood Count 3.37 MC/CUMM (3.8-5.5); Red Cell Distribution Width 14.4 % (9.3-17.3); White Blood Count 6.8 T/CUMM (4-12)
[2021-03-14 04:48] LABS: Alanine Aminotransferase 14 U/L (13-56); Alkaline Phosphatase 59 U/L (45-117); Aspartate Amino Transferase 17 U/L (0-37); Bilirubin,Direct < 0.100 MG/DL (0.0-0.20); Blood Urea Nitrogen 45 MG/DL (7-18); Calcium 8.2 MG/DL (8.5-10.1); Carbon Dioxide 24 MMOL/L (21-32); Estimated Glom Filtration Rate 11 ML/MIN; Glucose 109 MG/DL (74-106); Osmolality,Calculated 280.2 MOS/KG (273-304); Sodium 134 MMOL/L (136-145); Total Protein 5.8 G/DL (6.4-8.2)
[2021-03-14 04:51] LABS: Bilirubin,Indirect 0.6 MG/DL (0.0-1.0)
[2021-03-14] MEDS: DOCUSATE SODIUM 100 MG CAPSULE PO SCH (08:42)
[2021-03-14] MEDS: POLYETHYLENE GLYCOL POWDER 17 GM PACK PO SCH (08:42)
[2021-03-14] MEDS: FUROSEMIDE 40 MG TABLET PO SCH (08:43)
[2021-03-14] MEDS: ASCORBIC ACID 500 MG TABLET PO SCH ×2 (08:43→21:12)
[2021-03-14] MEDS: MONTELUKAST 10 MG TABLET PO SCH (08:43)
[2021-03-14] MEDS: PANTOPRAZOLE 40 MG TABLET PO SCH (08:43)
[2021-03-14] MEDS: ROSUVASTATIN 20 MG TABLET PO SCH (08:43)
[2021-03-14] MEDS: carvediloL 12.5 MG TABLET PO SCH ×2 (08:43→21:12)
[2021-03-14] MEDS: ASPIRIN EC 325 MG TABLET PO SCH (08:43)
[2021-03-14] MEDS: FERROUS SULFATE 325 MG TABLET PO SCH (08:44)
[2021-03-14] MEDS: INSULIN REGULAR 100 UNIT/ML SUBCUT SCH ×4 (10:29→21:12)
[2021-03-14] MEDS: ALBUTEROL 2 MG TABLET PO SCH ×3 (10:32→21:20)
[2021-03-14] MEDS: CHLORHEXIDINE 0.12% ORAL RINSE 60 ML BOTTLE SWISH/SPIT SCH ×2 (13:03→21:13)
[2021-03-15 05:50] LABS: Basophils % 0.2 % (0.0-0.8); Eosinophils # 0.3 10*3/uL (0.0-0.87); Eosinophils % 3.5 % (0.00-10.9); Hematocrit 31.6 VOL% (35.7-47.0); Hemoglobin 9.8 GM/DL (12.0-16.0); Immature Granulocytes % 0.8 %; Immature Granulocytes Absolute 0.07 #; Lymphocytes # 0.9 10*3/uL (1.4-4.0); Lymphocytes % 9.7 % (21.3-54.2); Mean Corpuscular Volume 89.3 FL (87-102); Mean Platelet Volume 11.2 FL (9.6-12.0); Monocytes % 11.9 % (1.7-12.7); Neutrophils % 73.9 % (38.7-73.9); Platelet Count 164 T/CUMM (130-400); Red Blood Count 3.54 MC/CUMM (3.8-5.5); Red Cell Distribution Width 14.3 % (9.3-17.3)
[2021-03-15 06:11] LABS: Alanine Aminotransferase 12 U/L (13-56); Alkaline Phosphatase 62 U/L (45-117); Aspartate Amino Transferase 18 U/L (0-37); Bilirubin,Indirect 0.7 MG/DL (0.0-1.0); Blood Urea Nitrogen 32 MG/DL (7-18); Calcium 8.6 MG/DL (8.5-10.1); Carbon Dioxide 27 MMOL/L (21-32); Estimated Glom Filtration Rate 12 ML/MIN; Glucose 66 MG/DL (74-106); Potassium 4.2 MMOL/L (3.5-5.1); Sodium 136 MMOL/L (136-145)
[2021-03-15] MEDS: ASPIRIN EC 325 MG TABLET PO SCH (08:36)
[2021-03-15] MEDS: DOCUSATE SODIUM 100 MG CAPSULE PO SCH (08:36)
[2021-03-15] MEDS: carvediloL 12.5 MG TABLET PO SCH ×2 (08:36→21:27)
[2021-03-15] MEDS: FERROUS SULFATE 325 MG TABLET PO SCH (08:36)
[2021-03-15] MEDS: PANTOPRAZOLE 40 MG TABLET PO SCH (08:36)
[2021-03-15] MEDS: ASCORBIC ACID 500 MG TABLET PO SCH ×2 (08:36→21:27)
[2021-03-15] MEDS: ALBUTEROL 2 MG TABLET PO SCH ×3 (08:36→21:27)
[2021-03-15] MEDS: FUROSEMIDE 40 MG TABLET PO SCH (08:36)
[2021-03-15] MEDS: MONTELUKAST 10 MG TABLET PO SCH (08:36)
[2021-03-15] MEDS: ROSUVASTATIN 20 MG TABLET PO SCH (08:37)
[2021-03-15] MEDS: CHLORHEXIDINE 0.12% ORAL RINSE 60 ML BOTTLE SWISH/SPIT SCH ×2 (08:37→21:27)
[2021-03-15] MEDS: INSULIN REGULAR 100 UNIT/ML SUBCUT SCH ×4 (08:41→21:27)
[2021-03-15] MEDS: LOSARTAN 25 MG TABLET PO SCH (08:41)
[2021-03-15] MEDS: POLYETHYLENE GLYCOL POWDER 17 GM PACK PO SCH (10:15)
[2021-03-15] MEDS: ALBUTEROL/IPRATROPIUM 3 ML NEB RESP TX SCH ×2 (11:26→20:18)
[2021-03-15] MEDS: guaiFENesin 200 MG/10 ML UDCUP PO PRN (12:03)
[2021-03-15] MEDS: oxyCODONE/ACETAMINOPHEN 5-325 MG TABLET PO PRN ×2 (16:11→23:46)
[2021-03-16] MEDS: ALBUTEROL/IPRATROPIUM 3 ML NEB RESP TX SCH ×2 (02:55→07:29)
[2021-03-16 06:28] LABS: Basophils % 0.4 % (0.0-0.8); Eosinophils # 0.4 10*3/uL (0.0-0.87); Eosinophils % 5.3 % (0.00-10.9); Hematocrit 28.2 VOL% (35.7-47.0); Hemoglobin 8.8 GM/DL (12.0-16.0); Immature Granulocytes % 0.7 %; Immature Granulocytes Absolute 0.06 #; Lymphocytes # 1.2 10*3/uL (1.4-4.0); Mean Corpuscular HGB Conc 31.2 GM/DL (32-36); Mean Corpuscular Volume 89.5 FL (87-102); Monocytes % 10.3 % (1.7-12.7); Neutrophils % 69.3 % (38.7-73.9); Platelet Count 159 T/CUMM (130-400); Red Blood Count 3.15 MC/CUMM (3.8-5.5); Red Cell Distribution Width 14.5 % (9.3-17.3); White Blood Count 8.3 T/CUMM (4-12)
[2021-03-16 06:49] LABS: Calcium 8.5 MG/DL (8.5-10.1); Osmolality,Calculated 277.1 MOS/KG (273-304); Potassium 4.2 MMOL/L (3.5-5.1)
[2021-03-16] MEDS: oxyCODONE/ACETAMINOPHEN 5-325 MG TABLET PO PRN ×2 (07:29→15:15)
[2021-03-16] MEDS: LOSARTAN 25 MG TABLET PO SCH (09:00)
[2021-03-16] MEDS: carvediloL 12.5 MG TABLET PO SCH (09:00)
[2021-03-16] MEDS: ALBUTEROL 2 MG TABLET PO SCH ×2 (11:12→14:00)
[2021-03-16] MEDS: CHLORHEXIDINE 0.12% ORAL RINSE 60 ML BOTTLE SWISH/SPIT SCH (11:12)
[2021-03-16] MEDS: INSULIN REGULAR 100 UNIT/ML SUBCUT SCH ×2 (11:12→14:58)
[2021-03-16 13:20] VITALS: BP 126/56
[2021-03-16] MEDS: DOCUSATE SODIUM 100 MG CAPSULE PO SCH (13:54)
[2021-03-16] MEDS: PANTOPRAZOLE 40 MG TABLET PO SCH (13:54)
[2021-03-16] MEDS: MONTELUKAST 10 MG TABLET PO SCH (13:55)
[2021-03-16] MEDS: ASPIRIN EC 325 MG TABLET PO SCH (13:55)
[2021-03-16] MEDS: ROSUVASTATIN 20 MG TABLET PO SCH (13:55)
[2021-03-16] MEDS: FERROUS SULFATE 325 MG TABLET PO SCH (13:55)
[2021-03-16] MEDS: ASCORBIC ACID 500 MG TABLET PO SCH (13:55)
[2021-03-16] MEDS: FUROSEMIDE 40 MG TABLET PO SCH (13:55)
[2021-03-16] MEDS: POLYETHYLENE GLYCOL POWDER 17 GM PACK PO SCH (14:58)
== END 2021-03-16 15:43 | disposition home health service (06) | DRG 235 ==
LOC: N.CVR 08:49 → N.ICU 03-08 15:19 → N.TELES 03-12 16:14